=== PATIENT | male | born 1960 | race Caucasian/White ===

== ENCOUNTER 2020-05-26 12:48 | Outpatient (CLI) | payer OTHER ==
[~2020-05-26 12:48] MED LIST: barium sulfate 450ml oral suspension ONE
== END 2020-05-26 23:59 | disposition home or self-care (01) ==
LOC: RAD 12:48
PROVIDERS: ATTEND Registered Nurse
DX: R13.12 Dysphagia, oropharyngeal phase (principal)
CPT/HCPCS: 74230